=== PATIENT | female | born 1945 | race Caucasian/White ===

== ENCOUNTER → 2016-09-27 | Outpatient (CLI) | payer BC, MEDICARE ==
[~2016-09-27] MED LIST: ATOR10TA15 PO; CALC1TAB12 PO; ERYT250 PO; FEMHRT 1/5 PO; FISH1000 PO; LEVO.075 PO; LEVO.1 PO; NEXI40CA PO; OMEP20TA PO; TAB-TAB PO; VALT500T PO; VITACAP7 PO
[2016-09-27 13:41] LABS: HEMATOCRIT 40.1 % (35.0-46.0); MEAN CELL VOLUME 86.3 FL (80.0-100.0); MEAN CORPUSCULAR HEMOGLOBIN 28.6 PG (27.0-34.0); MEAN CORPUSCULAR HGB CONC 33.2 % (32.0-36.0); PLATELET COUNT 291 TH/MM3 (150-450); RED BLOOD COUNT 4.65 MIL/MM3 (4.00-5.30); RED CELL DISTRIBUTION WIDTH 13.9 % (11.6-17.2); REVIEW FLAG FINAL; WHITE BLOOD COUNT 5.1 TH/MM3 (4.0-11.0)
[2016-09-27 13:50] LABS: BLOOD, URINE NEG (NEG); GLUCOSE,URINE NEG (NEG); KETONE, URINE NEG (NEG); NITRITE,URINE NEG (NEG); PH, URINE 5.5 (5.0-8.5); TRANSITIONAL EPI CELLS, URINE <1 /hpf; URINE COLOR YELLOW (YELLW/STRAW)
[2016-09-27 14:09] LABS: ALKALINE PHOSPHATASE 73 U/L (45-117); ALT (GPT) 20 U/L (10-53); ANION GAP 6 MEQ/L (5-15); AST (GOT) 17 U/L (15-37); BICARBONATE 30.3 MEQ/L (21.0-32.0); BLOOD UREA NITROGEN 13 MG/DL (7-18); CHLORIDE 106 MEQ/L (98-107); GLOMERULAR FILTRATION RATE 56 ML/MIN (>89); GLUCOSE,FASTING 85 MG/DL (74-99); SODIUM (NA) 142 MEQ/L (136-145); TOTAL BILIRUBIN ADULT 0.4 MG/DL (0.2-1.0)
--- NOTE | 2016-09-27 14:30 | RADRPT ---
EXAM DATE/TIME: 09/27/2016 14:07 [place] COMPARISON: No previous studies available for comparison. INDICATIONS : Evaluate for pneumonia, pneumothorax, or communicable disease. Pre op for hysteroscope. MEDICAL HISTORY : None. SURGICAL HISTORY : None. ENCOUNTER: Initial ACUITY: 1 day PAIN SCORE: 0/10 LOCATION: Bilateral chest FINDINGS: The heart is normal in size. There are mild COPD changes within the pulmonary parenchyma. The lungs a re otherwise clear. The visualized bony structures are grossly intact. CONCLUSION: 1. COPD changes. No acute abnormality. Ebenezer Stuart MD on September 27, 2016 at 14:28 Board Certified Radiologist. This report was verified electronically.
--- NOTE | 2016-09-29 00:02 | EKG ---
Date Performed: 09/27/2016 Time Performed: 13:25:36 PTAGE: 71 years EKG: Sinus rhythm POSSIBLE RIGHT VENTRICULAR CONDUCTION DELAY BORDERLINE ECG PREVIOUS TRACING : 07/22/2007 10.12 Compared to prior tracing no significant change DOCTOR: Laith Andrew Interpretating Date/Time 09/29/2016 00:01:13
== END ==
LOC: CPRE 12:52
PROVIDERS: ATTEND Obstetrics & Gynecology
DX: Z01.810 Encounter for preprocedural cardiovascular examination (principal); Z01.811 Encounter for preprocedural respiratory examination; Z01.812 Encounter for preprocedural laboratory examination; N95.0 Postmenopausal bleeding; N84.0 Polyp of corpus uteri
CPT/HCPCS: 36415; 71020; 80053; 81001; 85027; 87086; 93005

== ENCOUNTER → 2016-10-04 | Day surgery (SDC) | payer BC, MEDICARE ==
[~2016-10-04] VITALS: Ht 160 cm; Wt 67.4 kg
[~2016-10-04] MED LIST changes: +*MEPERIDINE 25 MG INJ VIAL PERIprocedural Use ONLY ONE; +ACETAMINOPHEN/HYDROcodone 325 MG/5 MG TAB ONE; +ACETAMINOPHEN/HYDROcodone 325 MG/5 MG TAB PO PRN; +DEXAMETHASONE SOD PHOS 4 MG/ML VIAL ONE; +DO NOT ADM ANY ANTICOAGULANT DRUGS XX PRN; -ERYT250 PO; +FAMOTIDINE 20 MG/2 ML VIAL ONE; -FEMHRT 1/5 PO; -FISH1000 PO; +INSULIN HUMAN REGULAR 1,000 UNITS/10 ML VIAL SQ PRN; +LACTATED RINGER'S 1000 ML INJ 1,000 ML IV ONE; +LACTATED RINGER'S 1000 ML IV SCH; +METOPROLOL TARTRATE 25 MG TAB PO PRN; +MIDAZOLAM HCL 2 MG/2 ML VIAL ONE; -NEXI40CA PO; +ONDANSETRON HCL 4 MG/2 ML VIAL IV PUSH ONE; +ONDANSETRON HCL 4 MG/2 ML VIAL IV PUSH PRN; +PHENYLEPH/NS 1000 MCG/10 ML SYR IV ONE; +PROPOFOL 200 MG/20 ML AMP IV ONE; +SODIUM CHLORID 0.9% 500 ML IV SCH; -TAB-TAB PO; +ePHEDrine/NS 25 MG/5 ML SYR IV ONE; +fentaNYL CITRATE 250 MCG/5 ML AMP ONE
[2016-10-04 13:01] VITALS: BP 117/76; PULSE 87; RESP 16; TEMP 98.4; O2SAT 95
[2016-10-04 18:15] VITALS: BP 146/76; PULSE 75; RESP 16; TEMP 97.6; O2SAT 98
--- NOTE | 2016-10-07 19:01 | MP ---
cc: Cindy JADE MD Corrected: 10/10/2016 DATE OF SURGERY 10/07/16 PREOPERATIVE DIAGNOSIS 1. Postmenopausal bleeding 2. Thick endometrial stripe on ultrasound. 3. Endometrial polyp on endometrial biopsy. POSTOPERATIVE DIAGNOSIS 1. Postmenopausal bleeding 2. Thick endometrial stripe on ultrasound. 3. Endometrial polyp on endometrial biopsy. PROCEDURE 1. Examination under anesthesia, 2. Dilation and curettage of the uterus and 3. Hysteroscopic exam ANESTHESIA General SURGEON Cindy Jade MD FINDINGS Examination under anesthesia - vagina was atrophic and the cervix was small and nulliparous. The uterus was normal size, shape and consistency. Adnexa negative for masses. The hysteroscopic exam revealed several false passages. I am not sure we ever got into the endometrial cavity. The MyoSure device was used to try to navigate the endocervical canal. We spent at least 30 minutes just trying to get into the endometrial cavity. I am not sure we every did. We definitely made two false passages. COUNTS Correct. ESTIMATED BLOOD LOSS Minimal. DISPOSITION The patient tolerated the procedure well, went to recovery room in good condition. PROCEDURE IN DETAIL The patient was taken to the operating room after she had postmenopausal bleeding and ultrasound that revealed thick endometrial stripe. Endometrial biopsy was performed in the office in June which revealed palpable endometrial polyp. Because of this, she is being brought to the operating room for MyoSure polypectomy. She was identified by name band and verbally and a time-out was taken. She received a general anesthetic and carefully placed in dorsolithotomy position. The urinary bladder was drained and an examination under anesthesia with care to notice the angle of the cervix. Once this had been accomplished, the anterior lip of the cervix was grasped with a single-tooth tenaculum and a weighted speculum was placed into the vagina. The cervix was serially dilated up to an 18 and felt normal. However when I put the hysteroscope in it seemed like we had created a false passage. I could not see either ostia and it did not look like endometrium, although it could have been scarred down endometrium. We did take sample from this area. The patient's right, it seemed like there may have been a small os there. We tried to redilate her, but we only created another false passage. Carefully pulling the hysteroscope out and looking carefully, there was little area to the patient's extreme left that may have been a little os into the endometrial canal. We tried a wire to cannulate this, but we were unable to. We tried to dilate this area, but we were unable to do that either. We did not want to created another false passage at this time. The procedure was terminated and the specimen will be sent to pathology for evaluation. However, I do feel like we got any endometrium. This needs to be followed very carefully. At this point, this procedure was terminated, instruments removed. She went to the recovery room in good condition. R. MD FRENCH Fletcher/ /4:39 PM /6:38 PM MTDD
== END | disposition home or self-care (01) ==
LOC: HSDC 12:03
PROVIDERS: ATTEND Obstetrics & Gynecology
DX: N95.0 Postmenopausal bleeding (principal); N84.0 Polyp of corpus uteri
CPT/HCPCS: 00952; 58558; 88305; J1100; J2175; J2250; J2370; J2405; J3010; J7120